=== PATIENT | female | born 1940 | race Caucasian/White ===

== ENCOUNTER 2018-12-03 08:00 | Inpatient (IN) | payer MEDICARE, BC ==
[2018-12-03] MEDS ORDERED: Acetaminophen 325 MG Tab PO PRN (16:20)
--- NOTE | 2018-12-03 17:00 | PCM.HP ---
H&P History of Present Illness - General Date of Service: 12/03/18 Admit Problem/Dx: Admission Diagnosis/Problem Admission Diagnosis/Problem Weakness Source of Information: Patient, Old Records, Provider History Limitations: Reports: No Limitations - History of Present Illness Initial Comments - Free Text/Narative: Patient is a 78-year-old female with a history of osteoarthritis who has struggled with bilateral shoulder pain for many years. She recently had made the decision to go ahead with shoulder arthroplasty and on 11/30/18 had a left shoulder replacement done at [facility]. Surgery went well and there were no complications following. She's had a little constipation after surgery but otherwise pain has been fairly well controlled. She's had no chest pain, no shortness of breath, no nausea or vomiting. She's been taking both oxycodone and tramadol up in [place] and the tramadol didn't really seem to help. Past medical history: Hypertension Gastroesophageal reflux disease AAA followed in the outpatient setting History of obesity Osteoarthritis Social history: The patient lives alone in [place]. She is a nonsmoker and drinks about 1 glass of wine a month. She has 3 daughters, 2, her countenance and lives in [place]. 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 Her developed Parkinson's disease and about 5 years ago was admitted to [facility] in [place]. He is now nonverbal and requires full cares. It's been very difficult for her. He is currently under hospice and she has struggled with the financial responsibilities and difficulty in caring for him in addition to the emotional pain of knowing that he would not want to live the way he is. Family history: The patient's mother from kidney failure at the age of 77 and the patient's father of a myocardial infarction at the age of 76. L shoulder Pain Score (Numeric/FACES): 4 - Related Data Allergies/Adverse Reactions: Allergies Allergy/AdvReac Type Severity Reaction Status Date / Time Wepjmvk-Lgk-Gan Reductase Allergy Body Aches Verified 12/03/18 15:35 Inhibitor Home Medications: Home Meds Acetaminophen [Tylenol Extra Strength] 1,000 mg PO TID 12/03/18 [History] Aspirin [Halfprin] 81 mg PO DAILY 12/03/18 [History] Cholecalciferol (Vitamin D3) [Vitamin D3] 5,000 unit PO BEDTIME 12/03/18 [ History] Cyanocobalamin (Vitamin B-12) [B-12] 500 mcg PO BEDTIME 12/03/18 [History] Lisinopril 20 mg PO BID 12/03/18 [History] Melatonin 3 mg PO BEDTIME 12/03/18 [History] Metoprolol Succinate [Toprol XL] 12.5 mg PO BEDTIME 12/03/18 [History] Omeprazole 20 mg PO QAM 12/03/18 [History] Polyethylene Glycol 3350 [MiraLAX] 17 gm PO DAILY 12/03/18 [History] Sennosides/Docusate Sodium [Senna-S] 1 tab PO BID 12/03/18 [History] hydroCHLOROthiazide [Hydrochlorothiazide] 25 mg PO DAILY 12/03/18 [History] oxyCODONE 5 - 10 mg PO Q4H PRN 12/03/18 [History] Past Medical History HEENT History: Reports: Hard of Hearing Cardiovascular History: Reports: Hypertension, Other (See Below) Other Cardiovascular History: heart vein enlargement Gastrointestinal History: Reports: GERD Genitourinary History: Reports: None ANESTHETIC ASSISTANT History: Reports: Other OB/BYN History: [id number] Musculoskeletal History: Reports: Arthritis Psychiatric History: Reports: Anxiety Endocrine/Metabolic History: Reports: Obesity/BMI 30+ Hematologic History: Reports: Anemia, Blood Transfusion(s) Oncologic (Cancer) History: Reports: Basal Cell Carcinoma, Other (See Below) Other Oncologic History: hx skin CA - Infectious Disease History Infectious Disease History: Reports: Chicken Pox, Measles, Mumps - Past Surgical History HEENT Surgical History: Reports: Cataract Surgery Other HEENT Surgeries/Procedures: R cataract surgery GI Surgical History: Reports: Colonoscopy, EGD Female Surgical History: Reports: D&C Musculoskeletal Surgical History: Reports: Knee Replacement, Shoulder Surgery Other Musculoskeletal Surgeries/Procedures:: L knee replacement, L shoulder replacement Oncologic Surgical History: Reports: None Social & Family History - Family History Family Medical History: Noncontributory - Tobacco Use Smoking Status *Q: Never Smoker - Caffeine Use Caffeine Use: Reports: Coffee, Soda - Recreational Drug Use Recreational Drug Use: No H&P Review of Systems - Review of Systems: Review Of Systems: ROS reveals no pertinent complaints other than HPI. Exam - Exam Exam: See Below - Vital Signs Vital Signs: Last Vital Signs Temp 36.6 C 12/03/18 15:28 Pulse 80 12/03/18 15:28 Resp 18 12/03/18 15:28 BP 131/59 L 12/03/18 15:28 Pulse Ox 97 12/03/18 15:28 Weight: 83.007 kg - Exam General: Alert, Oriented, Cooperative (Becomes tearful when discussing her 's situation. ) HEENT: PERRLA, Conjunctiva Clear, EOMI, Mucosa Moist & [place], Posterior Pharynx Clear Neck: Supple Lungs: Clear to Auscultation, Normal Respiratory Effort Cardiovascular: Regular Rate, Regular Rhythm, Normal S1, Normal S2 GI/Abdominal Exam: Normal Bowel Sounds, Soft, Non-Tender, No Distention Extremities: No Pedal Edema Neuro Extensive - Mental Status: Alert, Oriented x3, Normal Mood/Affect - Problem List (1) Status post total shoulder arthroplasty SNOMED Code(s): 452306817, [id number] ICD Code: Z96.619 - PRESENCE OF UNSPECIFIED ARTIFICIAL SHOULDER JOINT Status: Acute Current Visit: Yes Problem Details: PT and OT to follow, pain management. (2) HTN (hypertension) SNOMED Code(s): 86883980 ICD Code: I10 - ESSENTIAL (PRIMARY) HYPERTENSION Status: Acute Current Visit: Yes Problem Details: Well-controlled. Continue current medications. (3) Constipation SNOMED Code(s): 11307751 ICD Code: K59.00 - CONSTIPATION, UNSPECIFIED Status: Acute Current Visit : Yes Problem Details: Currently on 2 scheduled laxatives. We'll continue these for now. (4) DVT prophylaxis SNOMED Code(s): 937692015, 695368696 ICD Code: [id number] - Status: Acute Current Visit: Yes Problem Details: Ambulation, SCDs, ASA. Problem List Initiated/Reviewed/Updated: Yes Orders Last 24hrs: Active Orders 24 hr Category Date Time Status Patient Status [ADT] Routine ADT 12/03/18 16:20 Active Height and Weight [RC] FR Care 12/03/18 16:20 Active Notify Provider Vital Signs [RC] ASDIRECTED Care 12/03/18 16:22 Active Oxygen Therapy [RC] PRN Care 12/03/18 16:20 Active Up With Assistance [RC] ASDIRECTED Care 12/03/18 16:20 Active VTE/DVT Education [RC] Per Unit Routine Care 12/03/18 16:20 Active Vital Signs [RC] PER UNIT ROUTINE Care 12/03/18 16:20 Active OT Evaluation and Treatment [CONS] Routine Cons 12/03/18 16:20 Active PT Evaluation and Treatment [CONS] Routine Cons 12/03/18 16:20 Active Regular Diet [DIET] Diet 12/03/18 Breakfast Active Acetaminophen [Tylenol Extra Strength] Med 12/03/18 22:00 Active 1,000 mg PO 0600,1400,2200 Acetaminophen [Tylenol] Med 12/03/18 16:20 Active 650 mg PO Q4H PRN Aspirin [Halfprin] Med 12/04/18 09:00 Active 81 mg PO DAILY Cyanocobalamin (Vitamin B12) [Vitamin B12] Med 12/03/18 21:00 Active 500 mcg PO BEDTIME Docusate Sodium/Sennosides [Senna Plus] Med 12/03/18 21:00 Active 1 tab PO BID Lisinopril [Prinivil] Med 12/03/18 21:00 Active 20 mg PO BID Melatonin Med 12/03/18 21:00 Active 3 mg PO BEDTIME Metoprolol Succinate [Toprol XL] Med 12/03/18 21:00 Active 12.5 mg PO BEDTIME Pantoprazole [ProTONIX] Med 12/04/18 06:00 Active 40 mg PO 0600 Polyethylene Glycol 3350 [MiraLAX] Med 12/04/18 09:00 Active 17 gm PO DAILY hydroCHLOROthiazide Med 12/04/18 09:00 Active 25 mg PO DAILY oxyCODONE Med 12/03/18 16:23 Active 10 mg PO Q4H PRN oxyCODONE Med 12/03/18 16:36 Active 5 mg PO Q4H PRN Antiembolic Hose [OM.PC] Per Unit Routine Oth 12/03/18 16:22 Ordered Sequential Compression Device [OM.PC] Per Unit Routine Oth 12/03/18 16:22 Ordered Medication Orders Acetaminophen (Tylenol) 650 mg PO Q4H PRN PRN Reason: Pain (Mild 1-3)/fever Acetaminophen (Tylenol Extra Strength) 1,000 mg PO 0600,1400,2200 KEILA Aspirin (Halfprin) 81 mg PO DAILY KEILA Cyanocobalamin (Vitamin B12) 500 mcg PO BEDTIME KEILA Hydrochlorothiazide (Hydrochlorothiazide) 25 mg PO DAILY KEILA Lisinopril (Prinivil) 20 mg PO BID [facility] Melatonin (Melatonin) 3 mg PO BEDTIME KEILA Metoprolol Succinate (Toprol Xl) 12.5 mg PO BEDTIME KEILA Oxycodone HCl (Oxycodone) 10 mg PO Q4H PRN PRN Reason: PAIN SCORE > 5 Oxycodone HCl (Oxycodone) 5 mg PO Q4H PRN PRN Reason: PAIN SCORE 3-5 Pantoprazole Sodium (Protonix) 40 mg PO 0600 KEILA Polyethylene Glycol (Miralax) 17 gm PO DAILY KEILA Senna/Docusate Sodium (Senna Plus) 1 tab PO BID [facility] Assessment/Plan Comment:: CODE STATUS discussed at length with the patient on admission. Her living will was also reviewed from the [place] chart. The patient has really struggled with her 's situation and she would never want to be in the same situation herself where she was unable to care for herself or living in a situation where she would be alive but not really alive. If it's her time to go, she wants to pass peacefully. However, she would want full medical care up to the point of . If her situation was terminal or otherwise unlikely to survive to be able to return to independent living, her living will would address this and she would want comfort measures. Thus patient is DNR/BRENDA.
[2018-12-03] MEDS ORDERED: Acetaminophen 500 MG Tab PO ONE (17:30)
[2018-12-03] MEDS: oxyCODONE 5 MG Tab PO PRN (20:08)
[2018-12-03] MEDS: Melatonin 3 MG Tab PO SCH (22:23)
[2018-12-03] MEDS: Lisinopril 20 MG Tab PO SCH (22:24)
[2018-12-03] MEDS: Cyanocobalamin (Vitamin B12) 500 MCG Tab PO SCH (22:25)
[2018-12-03] MEDS: Metoprolol Succinate 25 MG Tab.ER PO SCH (22:25)
[2018-12-03] MEDS: Acetaminophen 500 MG Tab PO SCH (22:26)
[2018-12-04] MEDS: oxyCODONE 5 MG Tab PO PRN ×3 (04:14→20:41)
[2018-12-04] MEDS: Acetaminophen 500 MG Tab PO SCH ×3 (06:23→21:56)
[2018-12-04] MEDS: Pantoprazole 40 MG Tab.CR PO SCH (06:23)
[2018-12-04] MEDS: Aspirin 81 MG Tab.EC PO SCH (08:35)
[2018-12-04] MEDS: Hydrochlorothiazide 25 MG Tab PO SCH (08:35)
[2018-12-04] MEDS: Polyethylene Glycol 3350 Powder 17 GM Packet PO SCH (08:35)
[2018-12-04] MEDS: Lisinopril 20 MG Tab PO SCH ×2 (08:35→20:39)
[2018-12-04] MEDS: Metoprolol Succinate 25 MG Tab.ER PO SCH (20:39)
[2018-12-04] MEDS: Melatonin 3 MG Tab PO SCH (20:39)
[2018-12-04] MEDS: Cyanocobalamin (Vitamin B12) 500 MCG Tab PO SCH (20:40)
[2018-12-05] MEDS: Acetaminophen 500 MG Tab PO SCH ×3 (05:05→22:13)
[2018-12-05] MEDS: Pantoprazole 40 MG Tab.CR PO SCH (05:05)
[2018-12-05] MEDS: oxyCODONE 5 MG Tab PO PRN ×3 (05:06→20:53)
[2018-12-05] MEDS: Aspirin 81 MG Tab.EC PO SCH (08:45)
[2018-12-05] MEDS: Lisinopril 20 MG Tab PO SCH ×2 (08:45→20:52)
[2018-12-05] MEDS: Hydrochlorothiazide 25 MG Tab PO SCH (08:45)
[2018-12-05] MEDS: Polyethylene Glycol 3350 Powder 17 GM Packet PO SCH (08:45)
[2018-12-05] MEDS ORDERED: Magnesium Hydroxide 400 MG/5 ML Susp 30 ML Cup PO PRN (14:31)
[2018-12-05] MEDS ORDERED: Magnesium Hydroxide 400 MG/5 ML Susp 30 ML Cup ONE (14:36)
[2018-12-05] MEDS: Melatonin 3 MG Tab PO SCH (20:47)
[2018-12-05] MEDS: Metoprolol Succinate 25 MG Tab.ER PO SCH (20:52)
[2018-12-05] MEDS: Cyanocobalamin (Vitamin B12) 500 MCG Tab PO SCH (20:53)
[2018-12-06] MEDS: Pantoprazole 40 MG Tab.CR PO SCH (05:42)
[2018-12-06] MEDS: Acetaminophen 500 MG Tab PO SCH ×3 (05:42→21:00)
[2018-12-06] MEDS: Lisinopril 20 MG Tab PO SCH ×2 (09:03→20:51)
[2018-12-06] MEDS: Aspirin 81 MG Tab.EC PO SCH (09:03)
[2018-12-06] MEDS: Polyethylene Glycol 3350 Powder 17 GM Packet PO SCH (09:03)
[2018-12-06] MEDS: Hydrochlorothiazide 25 MG Tab PO SCH (09:05)
--- NOTE | 2018-12-06 17:46 | PCM.SN ---
- Free Text/Narrative Note: Patient is a 78-year-old female currently on hospital day #4 for physical therapy and rehabilitation after left shoulder replacement. Vital signs were stable today. The patient asked if I could see her because she noticed some bruising this morning on the left breast on the underside and also her left arm on the forearm and hand were quite bruised. She was very alarmed that she might be developing a blood clot. Reassured her that after surgery and having received blood thinners postoperatively it's not uncommon to see bruising and swelling develop like this and it is not a sign of any ongoing injury but rather evidence of a previous injury that had had bleeding into this site because of the blood thinners. She is currently only on aspirin daily for anticoagulation and I'm going to continue this. We did take photos at the patient's request of the bruising and I reassured her that there is no worry that this bruising could lead to a blood clot that would travel to her lungs or her brain and give her a stroke or PE. On physical exam, the patient's incision on the left shoulder is clean and dry with no bruising or redness surrounding it. The upper arm does not show any bruising or swelling but around starting around the elbow area and moving down to the hand she has increasing bruising with significant bruising at the hand particularly over the dorsum of the hand. This bruising was also present on admission but is much more plethoric today although not warm or erythematous. I suspect this is from immobilization during surgery which would've been in this area. Also on the underside of the left breast is a large linear bruise which is likely also bruising from some type of immobilization.
[2018-12-06] MEDS: Melatonin 3 MG Tab PO SCH (20:51)
[2018-12-06] MEDS: Cyanocobalamin (Vitamin B12) 500 MCG Tab PO SCH (20:52)
[2018-12-06] MEDS: Metoprolol Succinate 25 MG Tab.ER PO SCH (20:52)
[2018-12-06] MEDS: oxyCODONE 5 MG Tab PO PRN (20:52)
[2018-12-07] MEDS: Pantoprazole 40 MG Tab.CR PO SCH (05:37)
[2018-12-07] MEDS: Acetaminophen 500 MG Tab PO SCH ×3 (07:48→21:45)
[2018-12-07] MEDS: Aspirin 81 MG Tab.EC PO SCH (08:49)
[2018-12-07] MEDS: Hydrochlorothiazide 25 MG Tab PO SCH (08:49)
[2018-12-07] MEDS: Polyethylene Glycol 3350 Powder 17 GM Packet PO SCH (08:49)
[2018-12-07] MEDS: Lisinopril 20 MG Tab PO SCH ×2 (08:49→21:39)
[2018-12-07] MEDS: oxyCODONE 5 MG Tab PO PRN ×2 (10:13→21:52)
[2018-12-07] MEDS: Melatonin 3 MG Tab PO SCH (21:38)
[2018-12-07] MEDS: Metoprolol Succinate 25 MG Tab.ER PO SCH (21:43)
[2018-12-07] MEDS: Cyanocobalamin (Vitamin B12) 500 MCG Tab PO SCH (21:45)
[2018-12-08] MEDS: Pantoprazole 40 MG Tab.CR PO SCH (05:32)
[2018-12-08] MEDS: Acetaminophen 500 MG Tab PO SCH ×3 (05:54→22:14)
[2018-12-08] MEDS: Aspirin 81 MG Tab.EC PO SCH (08:00)
[2018-12-08] MEDS: Lisinopril 20 MG Tab PO SCH ×2 (08:01→20:51)
[2018-12-08] MEDS: Hydrochlorothiazide 25 MG Tab PO SCH (08:01)
[2018-12-08] MEDS: Polyethylene Glycol 3350 Powder 17 GM Packet PO SCH (08:09)
[2018-12-08] MEDS: Melatonin 3 MG Tab PO SCH (20:51)
[2018-12-08] MEDS: Cyanocobalamin (Vitamin B12) 500 MCG Tab PO SCH (20:52)
[2018-12-08] MEDS: Cyclobenzaprine 10 MG Tab PO PRN (20:52)
[2018-12-08] MEDS: Metoprolol Succinate 25 MG Tab.ER PO SCH (20:52)
[2018-12-09] MEDS: Acetaminophen 500 MG Tab PO SCH ×3 (07:02→21:05)
[2018-12-09] MEDS: Pantoprazole 40 MG Tab.CR PO SCH (07:04)
[2018-12-09] MEDS: Aspirin 81 MG Tab.EC PO SCH (08:41)
[2018-12-09] MEDS: Hydrochlorothiazide 25 MG Tab PO SCH (08:41)
[2018-12-09] MEDS: Lisinopril 20 MG Tab PO SCH ×2 (08:41→21:07)
[2018-12-09] MEDS: Polyethylene Glycol 3350 Powder 17 GM Packet PO SCH (08:41)
[2018-12-09] MEDS: Melatonin 3 MG Tab PO SCH (21:07)
[2018-12-09] MEDS: Metoprolol Succinate 25 MG Tab.ER PO SCH (21:07)
[2018-12-09] MEDS: Cyanocobalamin (Vitamin B12) 500 MCG Tab PO SCH (21:07)
[2018-12-09] MEDS: Cyclobenzaprine 10 MG Tab PO PRN (21:22)
[2018-12-10] MEDS: Acetaminophen 500 MG Tab PO SCH (05:50)
[2018-12-10] MEDS: Pantoprazole 40 MG Tab.CR PO SCH (05:50)
[2018-12-10] MEDS: Aspirin 81 MG Tab.EC PO SCH (08:42)
[2018-12-10] MEDS: Hydrochlorothiazide 25 MG Tab PO SCH (08:43)
[2018-12-10] MEDS: Lisinopril 20 MG Tab PO SCH (08:43)
[2018-12-10] MEDS: Polyethylene Glycol 3350 Powder 17 GM Packet PO SCH (08:43)
--- NOTE | 2018-12-10 10:24 | DISCH ---
DISCHARGE DATE: 12/10/2018 REASON FOR ADMISSION: 1. General debility. 2. Status post shoulder replacement, left. SECONDARY DIAGNOSES: 1. Hypertension. 2. Stable abdominal aortic aneurysm. 3. Gastroesophageal reflux disease. 4. Obesity. 5. Arthritis. BRIEF HISTORY AND HOSPITAL COURSE: This is a 78-year-old female, who had a left shoulder replacement on 30 of November and was admitted here for swing bed on the for physical and occupational therapy. She has improved and is ready to go home today. The only medication change was oxycodone was discontinued, which she has not been using. She was given Flexeril p.r.n. for muscle spasms. The rest of her home medications were left as previously prescribed. She will be discharged to home with outpatient occupational therapy. Please note that I spent more than 35 minutes in discharging her. /[id number] GERARDO/ARELI
== END 2018-12-10 11:20 | disposition home or self-care (01) | DRG 948 ==
LOC: FB.MS 14:47
PROVIDERS: ADMIT Family Medicine; ATTEND Family Medicine
DX: R53.81 Other malaise (principal); Z47.1 Aftercare following joint replacement surgery; Z96.612 Presence of left artificial shoulder joint; Z98.890 Other specified postprocedural states; M19.90 Unspecified osteoarthritis, unspecified site; I10 Essential (primary) hypertension; K21.9 Gastro-esophageal reflux disease without esophagitis; K59.00 Constipation, unspecified; I71.4 Abdominal aortic aneurysm, without rupture; Z85.828 Personal history of other malignant neoplasm of skin; H91.90 Unspecified hearing loss, unspecified ear; Z66 Do not resuscitate; Z79.82 Long term (current) use of aspirin; Z88.8 Allergy status to other drugs, medicaments and biological substances; E66.9 Obesity, unspecified; Z68.29 Body mass index [BMI] 29.0-29.9, adult; Z96.652 Presence of left artificial knee joint
CPT/HCPCS: 36415; 80053; 85025; 97110-GO; 97161-GP; 97165-GO; 97535-GO; A9270-GY

== ENCOUNTER 2019-12-20 07:33 | Day surgery (SDC) | payer MEDICARE, BC ==
[2019-12-20] MEDS ORDERED: Midazolam 1 MG/ML 2 ML SDV IV ONE (07:34)
[2019-12-20] MEDS ORDERED: fentaNYL 100 MCG/2 ML SDV IV ONE (07:34)
[2019-12-20] MEDS ORDERED: acetaZOLAMIDE 500 MG Cap.ER PO ONE ×2 (08:00→10:00)
[2019-12-20] MEDS ORDERED: Sodium Chloride 0.9% 10 ML Syringe FLUSH PRN (08:00)
--- NOTE | 2019-12-21 08:41 | OR ---
DATE OF OPERATION: 12/20/2019 SURGEON: Nikki Whiting MD PREOPERATIVE DIAGNOSIS: Visually significant cataract, left eye. POSTOPERATIVE DIAGNOSIS: Visually significant cataract, left eye. PROCEDURES PERFORMED: Phacoemulsification with intraocular lens placement, left eye. ASSISTANTS: None. ANESTHESIA: Local with sedation. COMPLICATIONS: None. BLOOD LOSS: None. IMPLANTS: An DEBORAH PCB00, 22.5 diopter lens, serial number [id number] implanted. CDE: 3.62. DESCRIPTION OF PROCEDURE: After risks and benefits were reviewed with the patient, consent was obtained in the preoperative area, and the operative eye was marked with a surgical pen. In the preoperative area, a pledget was used to dilate the pupil consisting of a mixture of phenylephrine 10%, cyclopentolate 2%, moxifloxacin 0.5%, and bupivacaine 0.75%. The patient was taken to the operating room, where a time-out was performed, and the patient was placed under monitored anesthesia care. Topical tetracaine was used for anesthesia. The operative eye was prepped and draped for ophthalmic surgery, and the microscope was brought into position and focused. A paracentesis incision was made, followed by injection of preservative-free 1% lidocaine into the anterior chamber, followed by injection of Viscoat into the anterior chamber. A microkeratome blade was used to make a corneal limbal incision temporally. A cystotome was used to make the beginning of the capsulorrhexis, which was carried around 360 degrees in a curvilinear fashion using Utrata forceps. A Dodson cannula with BSS was used to hydrodissect and hydrodelineate the nucleus. The nucleus was removed in a divide and conquer manner using phacoemulsification. Irrigation and aspiration were used to remove the remaining cortical material. Provisc was used to inflate the capsular bag, and a pre-loaded 22.5 Diopter lens, serial number [id number] was injected into the capsular bag. A Sinskey hook was used to position and center the lens. Next, irrigation and aspiration was used to remove any remaining viscoelastic and cortical material from the anterior chamber. BSS on a cannula was used to inflate the anterior chamber and hydrate the wound. The wound was checked and found to be watertight. 1 mg of Moxifloxacin was injected into the anterior chamber. Drapes were removed and the eye was cleaned. A drop of brimonidine 0.15% and a drop of TobraDex was placed. The eye was shielded, and the patient was taken to the recovery room in stable condition. /[id number] NICHOLAS/ARELI CC: GERRI RAMIREZ PA-C MTDD
== END 2019-12-20 10:35 | disposition home or self-care (01) ==
LOC: FB.SDS 07:33
PROVIDERS: ATTEND Ophthalmology
DX: H25.12 Age-related nuclear cataract, left eye (principal); H52.4 Presbyopia; H52.203 Unspecified astigmatism, bilateral; H52.03 Hypermetropia, bilateral; H35.033 Hypertensive retinopathy, bilateral; E78.5 Hyperlipidemia, unspecified; I10 Essential (primary) hypertension; K21.9 Gastro-esophageal reflux disease without esophagitis; Z98.41 Cataract extraction status, right eye; Z96.1 Presence of intraocular lens; Z79.82 Long term (current) use of aspirin; Z79.899 Other long term (current) drug therapy
CPT/HCPCS: 00142; 66984; A9270; J2250; J3010